=== PATIENT | female | born 1950 | race Asian ===

== ENCOUNTER → 2018-12-20 | Day surgery (SDC) | payer OTHER, MEDICARE ==
[2018-12-16 15:27] LABS: ALT/SGPT 46 U/L (12-78); AST/SGOT 32 U/L (15-37); Albumin 3.8 g/dL (3.4-5.0); Alkaline Phosphatase 105 U/L (45-117); Bilirubin Direct < 0.1 mg/dL (0-0.2); Bilirubin Total 0.3 mg/dL (0.2-1.0); Lipase 255 U/L (73-393); Protein, Total 9.1 g/dL (6.4-8.2)
--- NOTE | 2018-12-16 15:34 | RAD REPORT ---
EXAM DESCRIPTION: Antoni Cesar And Louie (2 Views)12/16/2018 3:26 pm CLINICAL HISTORY: Abdominal pain/preop COMPARISON: 2013 FINDINGS: Right middle lobe and lingular opacities are without significant change presumably scarri ng Lungs appear clear of acute infiltrate. The heart is normal size IMPRESSION: No acute abnormalities displayed
--- NOTE | 2018-12-16 17:22 | EKG ---
Test Date: 2018-12-16 Test Time: 15:21:45 [employer]phalt Paver Operator: REGIS MEASUREMENT RESULTS: Intervals: Rate: 80 AK: 136 QRSD: 74 QT: 378 QTc: 435 [place]: P: 27 AK: 136 QRS: 57 T: 64 INTERPRETIVE STATEMENTS: Normal sinus rhythm Normal ECG No previous ECG available for comparison Electronically Signed On 12-16-18 17:21:16 QA LEAD by Issa Lundy
[~2018-12-20] MED LIST: BUPIVACAINE 0.5% PF 10 ML VIAL ONE; CEFOXITIN/SWI 1gm 1 GM/10 ML SYR IV ONE; FENTANYL CITR 100 MCG/2 ML ONE; GLYCOPYRROLATE 0.2 MG/ML SYR ONE; HYDROCODONE/APAP 7.5/325 MG TAB ONE; KETOROLAC 30 MG/ML INJ ONE; LIDOCAINE 2% MPF 5 ML VIAL ONE; MEPERIDINE HCL 25 MG/0.5 ML ONE; MIDAZOLAM HCL 2 MG/2 ML INJ ONE; NALOXONE 0.4 MG/ML VIAL ONE; NEOSTIGMINE 1 MG/ML -10 ML VIAL ONE; ONDANSETRON 4 MG/2 ML VIAL ONE; PROPOFOL 200 MG/20 ML VIAL IV ONE; ROCURONIUM 50 MG/5 ML VIAL IV ONE; Ringers Lactate 1,000 ML IV ONE
--- OUTSIDE RECORDS SUMMARY | 2018-12-20 06:53 | XMS REPORT | Clinical Summary ---
:1950 Author Organization [facility] [employer] [facility] Address [address] [place] [address] Care Team Providers Name Role Phone Booker Thompson MD Primary Care Provider Allergies No Known Allergies Medications Medication Sig Dispensed Refills Start Date End Date Status lisinopril Take 10 mg by mouth 0 Active (PRINIVIL,ZESTRIL) 10 daily. MG tablet estradiol [address] 1 application 0 10/27/2015 Active tablet vaginally. multivitamin per Take 1 tablet by 0 Active tablet mouth daily. 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 Last Filed Vital Signs Not on file Plan of Treatment Not on file Results Not on fileafter 12/19/2017 Insurance Payer Benefit Plan / Group Subscriber ID Type Phone Address MEDICARE MEDICARE A B xxxxxxxxxx Medicare MEDICAID MEDICAID [facility] xxxxxxxxx Medicaid Advance Directives For more information, please contact:[facility] [employer] [address], [place] [phone] Code Status Date Activated Date Inactivated Comments Full Code 04/07/2016 2:27 PM 04/08/2016 2:01 PM This code status was determined by: Patient
--- NOTE | 2018-12-20 21:52 | OP ---
Date of Procedure: 12/20/2018 Surgeon: Gatito Mallory MD Program Director/Morning Show Host: LA Schneider. Preoperative Diagnosis: Symptomatic cholelithiasis. Postoperative Diagnosis: Symptomatic cholelithiasis. Procedure: Laparoscopic cholecystectomy. Estimated Blood Loss: Minimal. Specimen: Gallbladder. Findings: As above. Anesthesia: General. Complications: None. Disposition: The patient tolerated the procedure in stable condition and taken to the recovery room in good general condition. Description Of Procedure: The patient was brought to the OR and placed in supine position. General anesthesia was begun. The patient was prepped and draped in usual sterile fashion. Marcaine 0.5% wa s infiltrated locally. A 15-blade was used to make a 1-cm supraumbilical midline incision. Subcutan eous tissue was divided. The fascia was identified and divided. A #1 Vicryl stay suture was placed. Peritoneal cavity was entered with blunt dissection. A 12-mm trocar was placed into the peritoneal cavity under direct vision. Pneumoperitoneum was established and then three [address], one in the epigastrium just to the right of midline and two in the right subcostal region. Laparo scopy revealed chronic inflammation of the gallbladder. Fundus retracted superiorly. Infundibulum w as identified and retracted inferolaterally. Cystic duct and cystic artery were clearly identified w ith blunt dissection. Clips were placed. Both structures were divided. Cautery was used to remove the gallbladder from the liver bed. Bleeding on the liver bed was controlled with cautery. The gall bladder was retrieved through the umbilicus via an EndoCatch bag. Right upper quadrant was irrigated . Effluent was clear. No evidence of bleeding or bile leakage was appreciated. Subsequently, all t rocars were removed under direct vision. Stay sutures were tied to each other to reapproximate the f ascial defect. Subcutaneous wounds were irrigated. Bleeding controlled with cautery. A 3-0 chromic was used to reapproximate the subcutaneous tissue and close the skin. Sterile dressing was applied. Rosa were used to close the skin. Sterile dressings were applied. The patient was awakened in stable condition and taken to recovery room in good general condition Discharge Note: The patient will go to day surgery and home when stable. Disposition: Home. Condition: Stable. Discharge Instructions: Resume home meds and diet. Activity as tolerated. No heavy lifting. Remov e outer dressing in 2 days. Shower. Keep wound clean and dry. Follow up in my office in a week. C all for appointment. Tylenol No. 3 one tablet p.o. q.4 p.r.n. pain. NEVIN/MARISELA Voice ID: [id number] Report ID: [id number]
== END ==
LOC: OR 06:50
PROVIDERS: ATTEND Surgery
PROC: 0FT44ZZ Resection of Gallbladder, Percutaneous Endoscopic Approach (ICD-10-PCS; principal; 2018-12-20 09:00)
DX: K80.10 Calculus of gallbladder with chronic cholecystitis without obstruction (principal); I10 Essential (primary) hypertension; E07.9 Disorder of thyroid, unspecified
CPT/HCPCS: 93005; 36415; 82150; 80076; 88304; 83690; 71046; 47562; J2704; J2710; J2310; J2250; J3010 ×2; J2175; J2405